=== PATIENT | male | born 1995 | race Caucasian/White ===

== ENCOUNTER → 2018-05-20 | Outpatient (REF) | payer SELFPAY, OTHER | LOC: M LAB REF 12:27 | DX: L02.413 Cutaneous abscess of right upper limb (principal) | CPT/HCPCS: 87186 ==

== ENCOUNTER 2024-03-30 15:13 | Emergency (ER) | payer OTHER, SELFPAY ==
[~2024-03-30 15:13] MED LIST: CEPHALEXIN 500 MG CAP As Ordered ONE; LIDOCAINE 2% MDV 20ML VIAL As Ordered ONE; NEOSPORIN OINT 0.9 GM PKT As Ordered ONE
== END 2024-03-30 15:24 | disposition home or self-care (01) ==
LOC: M ED 15:13
DX: S62.604A Fracture of unspecified phalanx of right ring finger, initial encounter for closed fracture (principal); S61.214A Laceration without foreign body of right ring finger without damage to nail, initial encounter; W23.0XXA Caught, crushed, jammed, or pinched between moving objects, initial encounter; Y92.9 Unspecified place or not applicable; Y93.89 Activity, other specified; Y99.0 Civilian activity done for income or pay

== ENCOUNTER → 2024-04-27 | Outpatient (CLI) | payer OTHER | LOC: M SOG 08:01 | PROVIDERS: ATTEND Physician Assistant | DX: S62.634A Displaced fracture of distal phalanx of right ring finger, initial encounter for closed fracture (principal); S61.214A Laceration without foreign body of right ring finger without damage to nail, initial encounter; X58.XXXA Exposure to other specified factors, initial encounter; Y92.9 Unspecified place or not applicable; Y93.9 Activity, unspecified; Y99.9 Unspecified external cause status ==